=== PATIENT | female | born 1985 | race Caucasian/White ===

== ENCOUNTER 2020-06-06 19:55 | Emergency (ER) | payer MEDICAID ==
[~2020-06-06] VITALS: Ht 170.2 cm; Wt 68.5 kg
[~2020-06-06 19:55] MED LIST: DIAZ2TAB3 PO; ESCI20TA PO; FAMO20TA7 PO; LEVO50TA5 PO; LORA1TAB PO; NORT25CA78 PO; ONDA4TAB10 PO; PHEN100C4 PO; PHEN50TA4 PO
[2020-06-06] MEDS ORDERED: PROMETHAZINE 25 MG/ML, 1ML IM ONE (20:30)
[2020-06-06] MEDS ORDERED: KETOROLAC 30 MG/1 ML IVPush ONE (20:30)
[2020-06-06] MEDS ORDERED: SODIUM CHLORIDE FLUSH 10ML SYR IVF ONE (20:30)
[2020-06-06] MEDS ORDERED: METOCLOPRAMIDE 5 MG/ML, 2ML IVPush ONE (20:30)
[2020-06-06] MEDS ORDERED: METOCLOPRAMIDE 5 MG/ML, 2ML ONE (20:36)
[2020-06-06] MEDS ORDERED: KETOROLAC 30 MG/1 ML ONE (20:36)
[2020-06-06] MEDS ORDERED: PROMETHAZINE 25 MG/ML, 1ML ONE (20:36)
[2020-06-06 20:42] LABS: BASOPHILS # (AUTO) 0.04 x10^3/uL (0-0.1); BASOPHILS % (AUTO) 0 % (0-1); EOSINOPHILS # (AUTO) 0.14 x10^3/uL (0-0.4); EOSINOPHILS % (AUTO) 2 % (1-7); LYMPHOCYTES # (AUTO) 2.63 x10^3/uL (1-3.4); LYMPHOCYTES % (AUTO) 31 % (22-44); MD NO; MEAN CORPUSCULAR HEMOGLOBIN 33.2 pg (27.0-34.8); MEAN CORPUSCULAR HGB CONC 34.2 g/dL (32.4-35.8); MEAN CORPUSCULAR VOLUME 97.1 fL (80-100); MEAN PLATELET VOLUME 7.8 fL (7.4-10.4); MONOCYTES # (AUTO) 0.38 x10^3/uL (0.2-0.8); MONOCYTES % (AUTO) 5 % (2-9); NEUTROPHILS # (AUTO) 5.21 x10^3/uL (1.8-6.8); NEUTROPHILS % (AUTO) 62 % (42-75); PLATELET COUNT 380 x10^3/uL (130-400); RED BLOOD COUNT 4.28 x10^6/uL (3.82-5.3); RED CELL DISTRIBUTION WIDTH 13.5 % (9.6-15.2)
--- NOTE | 2020-06-06 20:50 | NUR ---
PT STATES RLQ ABD PAIN, STATES HX OF SAME. PT MEDICATED FOR PAIN PER ORDERS. PT REMAINS ON MONITORS, VSS. CONT TO MONITOR.
[2020-06-06 20:54] LABS: ALANINE AMINOTRANSFERASE 53 U/L (12-78); ALBUMIN 3.5 g/dL (3.4-5.0); ANION GAP 10 mmol/L (5-15); CALCIUM 8.9 mg/dL (8.5-10.1); CHLORIDE 109 mmol/L (98-107); CREATININE 0.71 mg/dL (0.55-1.02)
[2020-06-06 20:59] LABS: ALKALINE PHOSPHATASE 112 U/L (45-117); BILIRUBIN,TOTAL 0.4 mg/dL (0.2-1.0); TOTAL PROTEIN 7.7 g/dL (6.4-8.2)
--- NOTE | 2020-06-06 21:11 | NUR ---
UA SENT TO LAB, PT IN [place]
[2020-06-06 21:13] LABS: MICROSCOPIC NOT IND
[2020-06-06] MEDS ORDERED: ONDANSETRON 2MG/ML, 2ML IVPush ONE (21:30)
[2020-06-06] MEDS ORDERED: MORPHINE SULFATE 4 MG/ML, 1ML IVPush PRN (21:30)
[2020-06-06] MEDS ORDERED: MORPHINE SULFATE 4 MG/ML, 1ML ONE (21:33)
[2020-06-06] MEDS ORDERED: ONDANSETRON 2MG/ML, 2ML ONE (21:33)
[2020-06-06] MEDS ORDERED: PROP10TA51 PO (21:36)
[2020-06-06] MEDS ORDERED: OMEP20CA20 PO (21:36)
[2020-06-06] MEDS ORDERED: ARIP5TAB13 PO (21:36)
--- NOTE | 2020-06-06 21:43 | NUR ---
PT STATES ABD PAIN INCREASED AGAIN. ER MD AWARE, PT MEDICATED PER ORDERS FOR PAIN. WILL REASSESS.
--- NOTE | 2020-06-06 22:05 | NUR ---
REPORT TO NITO MARIE.
[2020-06-06 22:49] VITALS: BP 98/57
--- NOTE | 2020-06-06 22:49 | NUR ---
Patient/Caregiver given discharge instructions and they have confirmed that they understand the instructions. Patient ambulatory with steady gait.
== END 2020-06-06 22:51 | disposition home or self-care (01) ==
LOC: ED 21:28
DX: N83.01 Follicular cyst of right ovary (principal); N80.3 Endometriosis of pelvic peritoneum
CPT/HCPCS: 36415; 76830; 80053; 81003; 83690; 84703; 85025; 96372; 96374; 96375; 99285; J1885; J2405; J2550; J2765